=== PATIENT | male | born 1950 | race Caucasian/White ===

== ENCOUNTER 2021-01-20 06:28 | Day surgery (SDC) | payer MEDICARE ==
[~2021-01-20] VITALS: Ht 182.9 cm; Wt 92.7 kg
[2021-01-20 07:05] LABS: ANION GAP 11.8 mmol/L (8-16); CALCIUM 9.6 mg/dL (8.5-10.1); CARBON DIOXIDE 29.9 mmol/L (21.0-32.0); CREATININE - SERUM 1.2 mg/dL (0.6-1.3); POTASSIUM - SERUM 3.7 mmol/L (3.5-5.1)
[2021-01-20 07:09] LABS: BASOPHILS 0.2 % (0-2); EOSINOPHILS 0.4 % (0-7); HEMATOCRIT 37.8 % (42.0-54.0); HEMOGLOBIN 12.5 g/dL (13.5-17.5); IMMATURE GRANULOCYTES 0.3 % (0-5); LYMPHOCYTE ABS# 1.23 10x3/uL (1.32-3.57); LYMPHOCYTES 11.1 % (15-50); MCHC 33.1 g/dL (31.0-37.0); MCV 90.9 fL (80.0-100.0); MEAN PLATELET VOLUME 9.3 fL (7.4-10.4); MONOCYTES 2.8 % (2-11); NEUTROPHIL ABS# 9.42 10x3/uL (1.78-5.38); NEUTROPHILS 85.2 % (40-80); PLATELET COUNT 253 10x3/uL (130-400); RBC 4.16 10x6/uL (4.20-6.10); RDW 15.2 % (11.5-14.5); WBC 11.1 10x3/uL (4.8-10.8)
[2021-01-20] MEDS ORDERED: IBUPROFEN800 MG (07:58)
[2021-01-20] MEDS ORDERED: IBUPROFEN800 MG PO (07:59)
[2021-01-20] MEDS ORDERED: K-DUR20 MEQ PO (08:00)
[2021-01-20 08:01] LABS: INR 1.18 (0.85-1.17); PROTIME 13.9 SECONDS (11.6-15.0)
[2021-01-20] MEDS ORDERED: HYDROCHLOROTH12.5 M1 PO (08:01)
[2021-01-20] MEDS ORDERED: METHOTREXATE2.5 MG (08:01)
[2021-01-20] MEDS ORDERED: FOLIC ACID1 MG PO (08:01)
[2021-01-20] MEDS ORDERED: STERAPRED 5MG 125 MG PO (08:02)
[2021-01-20] MEDS ORDERED: PREDNISONE5 MG (08:02)
[2021-01-20] MEDS ORDERED: VASOTEC5 MG PO (08:03)
[2021-01-20 08:07] VITALS: BP 117/69; Ht 182.9 cm; Wt 92.7 kg
[2021-01-20 08:14] LABS: APTT 35.1 SECONDS (22.8-39.4)
--- NOTE | 2021-01-20 10:19 | NUR ---
0955 SEE POST PROCEDURE CHECKLIST FOR VITAL SIGN TRENDS. 1010 SITTING HIGH FOWLERS, DRINKING COLA, REG DIET HAS BEEN ORDERED FOR PT.
--- NOTE | 2021-01-20 11:25 | NUR ---
1110 PT. EXPRESSED DESIRE TO GO HOME. DIETARY CALLED AGAIN TO BRING DIET.
--- NOTE | 2021-01-20 11:33 | NUR ---
1115 REG DIET SERVED. 1130 ATE 100% REG DIET. DENIES PROBLEMS, STATES READY TO GO HOME. PT IS DRESSED. AT SIDE.
== END 2021-01-20 11:50 | disposition home or self-care (01) ==
LOC: D.CT 06:28
PROVIDERS: General Practice; ATTEND Legal Medicine
DX: R22.42 Localized swelling, mass and lump, left lower limb (principal)

== ENCOUNTER → 2021-01-21 09:16 | Outpatient (CLI) | payer MEDICARE ==
--- NOTE | 2021-01-19 11:12 | NUR ---
CONFIRMED PT APPT TOMORROW. PT DOES TAKE IBUPROFEN 800MG DAILY AND WAS INSTRUCTED TO STOP TODAY. CONFIRMED NPO STATUS AFTER MIDNIGHT AND PT WILL HAVE PROCESSING SPEC POST PROCEDURE. PT STATES DOES NOT HAVE IMAGES. CONTACTED [facility] WHERE CT AND MRI DONE - THEY ARE GOING TO BRING DISC TO HOSPITAL TO TODAY.
[2021-01-20 08:07] VITALS: BMI 27.7
[~2021-01-21 09:16] MED LIST: FOLIC ACID1 MG PO; HYDROCHLOROTH12.5 M1 PO; IBUPROFEN800 MG; IBUPROFEN800 MG PO; K-DUR20 MEQ PO; METHOTREXATE2.5 MG; PREDNISONE5 MG; STERAPRED 5MG 125 MG PO; VASOTEC5 MG PO
--- NOTE | 2021-01-21 12:09 | NUR ---
RECEIVED ORDER FROM DR MAC FOR 2MG DILAUDID PO. GIVEN WITH WATER- PT IN RADIOLOGY DEPARTMENT FOR BONE SCAN. PAIN 10
--- NOTE | 2021-01-21 12:58 | NUR ---
RE-EVALUATE PAIN- PAIN MUCH BETTER 5
== END | disposition home or self-care (01) ==
LOC: D.NM 09:16
PROVIDERS: ATTEND Legal Medicine
DX: R22.42 Localized swelling, mass and lump, left lower limb (principal)

== ENCOUNTER 2021-03-30 09:25 | Day surgery (SDC) | payer MEDICARE ==
[~2021-03-30] VITALS: Ht 182.9 cm; Wt 86.6 kg
--- NOTE | ~2021-03-30 | OP ---
PATIENT NAME: ADRIÁN CAMPO MEDICAL RECORD: [id number] :54 LOCATION:D.OPS ADMISSION DATE: SURGEON: SHERRELL LUCIANO MD DATE OF OPERATION: 03/30/2021 PREOPERATIVE DIAGNOSES: 1. Nonsmall cell lung cancer. 2. Metastasis to the left hip. 3. Hypertension. 4. Arthritis. POSTOPERATIVE DIAGNOSES: 1. Nonsmall cell lung cancer. 2. Metastasis to the left hip. 3. Hypertension. 4. Arthritis. PROCEDURE: 1. Left subclavian vein PowerPort placement. 2. Fluoroscopic interpretation. SURGEON: Sherrell Luciano MD DESCRIPTION OF PROCEDURE: The patient's left chest was prepped and draped in sterile fashion. A needle was used to cannulate the left subclavian vein and the guidewire was advanced with ease. A skin incision was made on the left superior lateral chest and a subcutaneous pouch was made over the pectoral fascia. The catheter was tunneled between this pouch and the wire exit site. The port was sutured to the pectoral fascia with interrupted 2-0 Prolenes times 2. The catheter was cut with a beveled tip at 23 cm. The dilator trocar device was placed over the wire and the wire and dilator were removed. The catheter tube was advanced through the trocar and the trocar was then removed. The catheter tip was noted to be resting in good position in the superior vena cava. The catheter aspirated nonpulsatile dark blood and flushed easily with heparinized saline. The subcutaneous tissues were reapproximated with interrupted 3-0 Vicryl and the skin was closed with running subcutaneous 5-0 Monocryl. An access needle was then inserted and we flushed the catheter one last time with heparinized saline. COMPLICATIONS: None. CONDITION: Stable. ANESTHESIA: General endotracheal. BLOOD LOSS: Minimal. TRANSINT:[id number] Voice Confirmation ID: [id number] DOCUMENT ID: [id number] OPERATIVE REPORT [id number] ADRIÁN CAMPO SHERRELL LUCIANO MD CC: MELODY MAC MD [id number] DICTATION DATE: 03/30/21 1220 SENIOR MANUFACTURING TECHNICIAN: 03/30/[address] [facility] [address] [id number]
[~2021-03-30 09:25] MED LIST changes: +GABAPENTIN300 MG; +HYDROCODONE-AC1 EAC2; +MORPHINE SULFAT60 M5
[2021-03-30 09:47] LABS: BASOPHILS 0.5 % (0-2); EOSINOPHILS 0.3 % (0-7); HEMATOCRIT 34.4 % (42.0-54.0); HEMOGLOBIN 11.5 g/dL (13.5-17.5); LYMPHOCYTES 7.7 % (15-50); MCH 28.8 pg (26.0-34.0); MCHC 33.3 g/dL (31.0-37.0); MCV 86.4 fL (80.0-100.0); MEAN PLATELET VOLUME 7.8 fL (7.4-10.4); MONOCYTES 3.2 % (2-11); NEUTROPHILS 88.3 % (40-80); PLATELET COUNT 240 10x3/uL (130-400); RBC 3.98 10x6/uL (4.20-6.10); RDW 17.6 % (11.5-14.5); WBC 6.3 10x3/uL (4.8-10.8)
[2021-03-30 09:54] LABS: ANION GAP 12.6 mmol/L (8-16); CALCIUM 9.9 mg/dL (8.5-10.1); CARBON DIOXIDE 29.7 mmol/L (21.0-32.0); CREATININE - SERUM 1.1 mg/dL (0.6-1.3); POTASSIUM - SERUM 3.3 mmol/L (3.5-5.1)
[2021-03-30 09:56] LABS: APTT 26.1 SECONDS (22.8-39.4); INR 1.15 (0.85-1.17); PROTIME 13.6 SECONDS (11.6-15.0)
[2021-03-30 10:59] VITALS: BP 104/65; Ht 182.9 cm; Wt 86.6 kg
== END 2021-03-30 14:00 | disposition home or self-care (01) ==
LOC: D.OPS 09:25
PROVIDERS: Anesthesiology; ATTEND Surgery
DX: C34.80 Malignant neoplasm of overlapping sites of unspecified bronchus and lung (principal); C49.22 Malignant neoplasm of connective and soft tissue of left lower limb, including hip; I10 Essential (primary) hypertension; M16.10 Unilateral primary osteoarthritis, unspecified hip

== ENCOUNTER 2021-04-28 12:30 | Outpatient (CLI) | payer MEDICARE ==
[~2021-04-28] VITALS: Ht 182.9 cm; Wt 82.3 kg
[2021-04-28 14:15] VITALS: BP 112/74; Ht 182.9 cm; Wt 82.3 kg
--- NOTE | 2021-04-28 14:33 | NUR ---
PATIENT ARRIVED FOR BLOOD TRANSFUSION. ARRIVED WITH LEFT CHEST WALL INFUSAPORT IN PLACE DRESSED WITH GAUZE. ON ARRIVAL, PORT FLUSHED EASILY WITH SALINE 10 ML AND BLOOD DRAWN, 10 ML WASTED, 10 ML DRAWN AND SENT TO LAB FOR X MATCH. PATIENT BANDED. PORT SITE DRESSED WITH TEGADERM.
--- NOTE | 2021-04-28 18:24 | NUR ---
1630 1ST UNIT PRBCS STARTED AT 75 ML/HR FOR 15 MINUTES. TOLERATED WELL. 1645 INFUSION RATE INCREASED TO 225 ML/HR PER INFUSION PUMP. 1800 1ST UNIT COMPLETE.PATIENT TOLERATED WITHOUT ANY PROBLEMS. 1818 2ND UNIT STARTED AT RATE OF 75 ML/HR PER INFUSION PUMP FOR 15 MINUTES
--- NOTE | 2021-04-28 18:38 | NUR ---
1835 RATE INCREASED TO 250 ML/HR PER INFUSION PUMP. LALYING IN BED WATCHING TV WITHOUT CO
--- NOTE | 2021-04-28 19:55 | NUR ---
1934 BLOOD TRANSFUSION COMPLETE. SALINE FLUSH OF LINE. SALINE FLUSH AND HEPARIN FLUSH OF PORT AND VYAS NEEDLE REMOVED. PATIENT TOLERATED BOTH UNITS WITHOUT COMPLAINTS OR PROBLEMS NOTED. DISCHARGE INSTRUCTIONS REVIEWED AND VERBALIZED UNDERSTANDING. DISCHARGED VIA [facility]
== END 2021-04-28 19:45 | disposition home or self-care (01) ==
LOC: D.OPS 12:30
PROVIDERS: ATTEND Legal Medicine
DX: D64.81 Anemia due to antineoplastic chemotherapy (principal); Q76.42 Congenital lordosis; C34.90 Malignant neoplasm of unspecified part of unspecified bronchus or lung; C79.51 Secondary malignant neoplasm of bone